=== PATIENT | female | born 1965 | race Caucasian/White ===

== ENCOUNTER → 2016-09-23 | Outpatient (CLI) | payer BC ==
[~2016-09-23] MED LIST: BUPR150T7 PO; CITA20TA9 PO; LEVO125T72 PO; mirena iud
== END | disposition home or self-care (01) ==
LOC: C.LABBC 09:12
PROVIDERS: ATTEND Physician Assistant Medical
DX: E03.9 Hypothyroidism, unspecified (principal)

== ENCOUNTER → 2016-11-30 | Outpatient (CLI) | payer BC ==
--- NOTE | 2016-11-30 15:56 | DIAGNOSTIC IMAGING REPORT ---
LUMBAR SPINE W/O CONTRAST CLINICAL HISTORY: 51 years-old Female with M54.5 Low back [id number]. COMPARISON: Lumbar spine radiographs 04/28/2006 TECHNIQUE: Multiplanar, multi sequence MRI of the lumbar spine was performed without intravenous contrast. FINDINGS: There is mild convex left curvature of the lumbar spine, 9 degrees. No gross abnormality of the abdomen or pelvis. 2.2 x 2.0 cm cystic lesion of the left adnexum is noted. There is 3 mm anterolisthesis of L4 on L5, likely secondary to underlying facet arthropathy. Discogenic degeneration is seen at L4-L5 and L5-S1. No focal bone marrow edema or fracture is seen. Conus medullaris terminates at L1 level. No abnormal signal within the cord. T12-L1: No central canal or neural foraminal stenosis. L1-L2: Small broad-based posterior disc bulge partially effaces the ventral thecal sac without significant central canal narrowing. This causes mild inferior left foraminal stenosis. Right foramen is patent. L2-L3: Small broad-based posterior disc bulge and facet arthrosis is present. There is partial effacement of the ventral thecal sac without significant central canal or foraminal narrowing. L3-L4: Mild intervertebral disc space narrowing with broad-based posterior disc bulge and mild facet arthrosis. There is partial effacement of the ventral thecal sac without significant central canal or foraminal narrowing. L4-L5: 3 mm anterolisthesis L4 on L5 with disc space uncovering and small circumferential annular disc bulge. Moderate facet arthrosis with small left facet effusion and ligamentum flavum redundancy there is resultant mild central canal and mild to moderate bilateral foraminal narrowing. L5-S1: Mildly decreased disc height space and signal noted in conjunction with broad-based posterior disc bulge, mild facet arthrosis and ligamentum flavum redundancy. No significant central canal or left foraminal narrowing. There is mild right foraminal stenosis. IMPRESSION: 1. Discogenic degenerative changes are noted at L3-L4, L4-L5 and L5-S1 as detailed above. No fracture or focal bone marrow edema. 2. At L4-L5 there is resultant mild central canal and mild to moderate bilateral foraminal narrowing. 3. 9 mm convex left curvature of the lumbar spine. 4. Indeterminate 2.2 cm cystic lesion arises from the region of the left adnexum. This could be correlated with pelvic ultrasound. The above report was generated using voice recognition software. It may contain grammatical, syntax or spelling errors. Electronically signed by: Osmani Diop M.D. 11/30/2016 3:55 PM Dictated Date/Time: 11/30/2016 3:41 PM
== END | disposition home or self-care (01) ==
LOC: C.MRIBC 14:48
PROVIDERS: ATTEND Physician Assistant Medical
DX: M54.5 Low back pain (principal); M99.73 Connective tissue and disc stenosis of intervertebral foramina of lumbar region; M43.9 Deforming dorsopathy, unspecified

== ENCOUNTER → 2017-11-26 | Outpatient (CLI) | payer OTHER | END | disposition home or self-care (01) | LOC: C.LABBC 07:59 | PROVIDERS: ATTEND Internal Medicine | DX: E03.9 Hypothyroidism, unspecified (principal) ==